=== PATIENT | female | born 1975 ===

== ENCOUNTER 2024-12-20 16:00 | Outpatient (REF) | payer OTHER, SELFPAY ==
--- OUTSIDE RECORDS SUMMARY | 2023-06-29 10:40 | XMS_ITS ---
Author Organization [facility] Address [address] [address] Care Team Providers Care Drilling Engineer Name Role Phone Giorgio Lozoya Unavailable [phone] Yasmine Hernandez Unavailable [phone] REASON FOR VISIT Pap Encounters Encounter Location Date Provider Diagnosis [facility] [address] [place] [address] [address] [place], [place] [phone] 06/29/2023 Yasmine Hernandez Plan Of Treatment No Information Progress Notes * Chip HOLDEROB: [birth year] (49 yo F)Acc No.[id number]:06/29/2023 Progress Note Patient: Marielena Hawkins Provider: Kimberly Hernandez MD :1975 A ge:48 Y S ex:Female Date:06/29/2023 Address:[address] [place], [place] [id number] Subjective: * Chief Complaints: * P ap * Medical History: * Surgical History: * Hospitalization/Major Diagno stic Procedure: * Medications: * Electronic signature of Gloria Hernandez M.D. on 12/21/2024 at 10:47 AM EST Sign off status: Pending * Provider: Kimebrly Hernandez MD Date: 06/29/2023 Generated for Lul giang/Agustin/Suze on: 02/21/2024 10:47 AM EST
--- OUTSIDE RECORDS SUMMARY | 2023-11-25 03:40 | XMS_ITS ---
Author Organization [facility] Address [address] [facility] [address] [place] [address] Care Team Providers Care Environmental Health Inspector Name Role Phone Giorgio Lozoya Unavailable [phone] Yasmine Hernandez Unavailable [phone] Allergies Allergen (clinical drug ingredient) Drug/Non Drug Allergy documented on EMR Reaction Allergy Type Onset Date Status penicillin G benzathine hives Drug Allergy Active REASON FOR VISIT Shoulder pain, Seen by Sameer Waldron, PGY1 Medications Medication SIG (Take, Route, Frequency, Duration) Notes Start Date End Date Status Trulicity Pen 0.75 mg/0.5 mL solution as directed subcutaneously once a week; Duration: 30 days Active TraMADol Hydrochloride 50 mg tablet 1 tab(s) orally every 6 hours; Duration: 7 days 11/25/2023 Active Social History Social History Additional Details Category Social Info Options Details Social History Occupation: [employer] Occup. exposure: none Travel ouside [place]: no Alcohol: no Sexually active: yes Drug use: no Exercise: no Home smoke detector use: no Caffeine: no Marital Status: Children: sons: 2 Pets: dog 1 Checked Cholesterol levels yes Seat belt usage Yes Gun in house No Vital Signs Blood pressure systolic 142 mm Hg 11/25/19 24 Blood pressure diastolic 90 mm Hg 024 Height 63.75 in 11/25/2023 Weight 225 lbs 11/25/2023 BMI 38.92 kg/m2 11/25/2023 Dana Encounters Encounter Location Date Provider Diagnosis [facility] [address] [facility] [address] [place], [place] [phone] 11/25/2023 Yasmine Hernandez Obesity (BMI 30-39.9 ) E66.9 ; Pain, joint, shoulder, right M25.511 ; Ulcer of right foot with necrosis of muscle L97.513 ; Type 2 diabetes mellitus with hyperglycemia, without long-term current use of insulin E11.65 and Iron deficiency E61.1 Assessments Encounter Date Diagnosis (ICD Code) Assessment Notes Treatment Notes Treatment Clinical Notes Section Notes 11/25/2023 Obesity (BMI 30-39.9) (ICD-10 - E66.9) 11/25/2023 Pain, joint, shoulder, right (ICD-10 - M25.511) Constant Right shoulder pain radiating to forearm since 2 weeks. Prior to that she had a fall 5 years ago since then had on and off pain but refused workup during prior visits. Range of motion restriction. Pain aggravated on both active and passive movement of shoulder. No warmth noticed on the shoulder. Pain both on abduction and extension of the shoulder. Will order an Xray and MRI. Pain control on Tramadol 50mg oral q6 for 7 days and follow up with joint specalist for further management. 11/2023- Right shoulder joint Xray shows mild rotator cuff calcific tendinitis. 11/25/2023 Ulcer of right foot with necrosis of muscle (ICD-10 - L97.513) followed in wound clinic 11/25/2023 Type 2 diabetes mellitus with hyperglycemia, without long-term current use of insulin (ICD-10 - E11.65) pending visit with endo . Patient currently non taking any medication except Trulicity Pen 0.75 mg weekly. Last HbA1c 08/05/2023- 15.2 Educated on the complications of diabetes and risk of non compliance with the medications. Follows Dr. Warner (Endocrinology) pending appointment. 11/25/2023 Iron deficiency (ICD-10 - E61.1) Currently not taking any supplements. 11/25/2023 Other Tdap 2022 PAP 2023 NEXT DM shoulder Plan Of Treatment Medication Medication Name Sig Start Date Stop Date Notes Rosuvastatin Calcium 40 mg tablet 1 tab(s) orally once a day; Duration: 30 day(s) Trulicity Pen 0.75 mg/0.5 mL solution as directed subcutaneously once a week; Duration: 30 days TraMADol Hydrochloride 50 mg tablet 1 tab(s) orally every 6 hours; Duration: 7 days 11/25/2023 fluconazole 100 mg tablet 1 tab(s) orall y once a day; Duration: 7 days ferrous gluconate 324 mg tablet 1 tab(s) orally once a day; Duration: 90 days Jardiance 10 mg tablet 1 tab(s) orally o nce a day (in the morning) Lantus Solostar Pen 100 units/mL solution 25 units subcutaneously Treatment Notes Assessment Notes Pain, joint, shoulder, right Constant Right shoulder pain radiating to forearm since 2 weeks. Prior to that she had a fall 5 years ago since then had on and off pain but refused workup during prior visits. Range of motion restriction. Pain aggravated on both active and passive movement of shoulder. No warmth noticed on the shoulder. Pain both on abduction and extension of the shoulder. Will order an Xray and MRI. Pain control on Tramadol 50mg oral q6 for 7 days and follow up with joint specalist for further management. 11/2023- Right shoulder joint Xray shows mild rotator cuff calcific tendinitis. Ulcer of right foot with nec rosis of muscle followed in wound clinic Type 2 diabetes mellitus wit h hyperglycemia, without long-term current use of insulin pending visit with endo . Patient currently non taking any medication except Trulicity Pen 0.75 mg weekly. Last HbA1c 08/05/2023- 15.2 Educated on the complications of diabetes and risk of non compliance with the medications. Follows Dr. Warner (Endocrinology) pending appointment. Iron deficiency Currently not taking any supplements. Other Tdap 2022 PAP 2023 NEXT DM shoulder Pending Test Test Name Order Date RAD: SHOULDER 2 VIEW MIN. 11/25/2023 MRI: Shoulder,RIGHT WITH OUT Contrast Next Appt Details Follow Up: prn, Reason: History and Physical Notes * HPI (History of Present Illness) Category Sub-Category Detail Notes Category Not es Follow-up RIGHT SHOULDER PAIN: Patient came to the office with chief complaint of Right Shoulder pain which has been constant and bothering the patient since the last two weeks. Patient had a mechanical fall 5 years ago and went to ER and was sent home with a sling. Since the fall which patient had pain which has been on and off. During her prior clinic visits, she refused any work up for shoulder pain as it was not bothering her and mentioned she could manage the pain. But over the last two weeks the pain has been constant radiating to forearm. Patient has been taking Ibuprofen and Tylenol over the last two weeks which gave mild relief in her. She denies any change in physical activity/lifting heavy objects. #DIABETES TYPE 2: Patient has type 2 diabetes non-compliant with the medications. Her last HbA1C 08/05/2023 was in 15.2. As per the patient she is only taking TTrulicity Pen 0.75 mg/0.5 mL solution as directed subcutaneously once a week. When asked the reason for not taking the medication she replied she doesnt have any answer Patient has been educated about the complications associated with diabetes and importance of being compliant with the medications. She responded positively and open to the idea of being compliant with diabetes. She follows Dr. Warner (Endocrine specialist). Physical Examination Category Sub-Category Detail Notes Section Note s HEENT Head: normocephalic, atraumatic Nose: unremarkable Throat: clear, no erythema o r exudate Mouth: moist mucus membrane s Ears: unremarkable, TM's n ormal bilaterally NECK General: supple JVD: none EXTREMITIES Edema: none Upper Extremities: right shoulder limit ed ROM BACK Spine: unremarkable HEART Rhythm: regular Heart sounds: normal S1S2 Rate: regular ABDOMEN General: soft Guarding: none Tenderness: none MUSCULOSKELETAL Knee: unremarkable Ankle: unremarkable Foot: unremarkable Leg: unremarkable GENERAL General Appearence: well-appearing, no ac curyung distress Mental Status: alert and oriented LUNGS Auscultation: CTA bilaterally, no wheezin g/rhonchi/rales Progress Notes * Chip HOLDEROB: [birth year] (49 yo F)Acc No.[id number]:11/25/2023 Progress Notes Patient: Marielena Hawkins Provider: Kimberly Hernandez MD :1975 A ge:48 Y S ex:Female Date:11/25/2023 Address:[address] [place], [place] [phone] Subjective: * Chief Complaints: * S houlder painSeen by Sameer Waldron, PGY1 * HPI: F ollow-up: RIGHT SHOULDER PAIN: Patient came to the office with chief complaint of Right Shoulder pain which has been constant and bothering the patient since the last two weeks. Patient had a mechanical fall 5 years ago and went to ER and was sent home with a sling. Since the fall which patient had pain which has been on and off. During her prior clinic visits, she refused any work up for shoulder pain as it was not bothering her and mentioned she could manage the pain. But over the last two weeks the pain has been constant radiating to forearm. Patient has been taking Ibuprofen and Tylenol over the last two weeks which gave mild relief in her. She denies any change in physical activity/lifting heavy objects. #DIABETES TYPE 2: Patient has type 2 diabetes non-compliant with the medications. Her last HbA1C 08/05/2023 was in 15.2. As per the patient she is only taking TTrulicity Pen 0.75 mg/0.5 mL solution as directed subcutaneously once a week. When asked the reason for not taking the medication she replied she doesnt have any answer Patient has been educated about the complications associated with diabetes and importance of being compliant with the medications. She responded positively and open to the idea of being compliant with diabetes. She follows Dr. Warner (Endocrine specialist). * ROS: A LLERGY: no A ngioedema. n o C ough. n o E ar Symptoms. n o F acial Pressure. n o I tchy Eyes. n o N melly Congestion. n o?Post-nasal Drip. n o R nato. n o S neezing. n o S ore Throat. ? C ONSTITUTIONAL: Body Aches y es. n o F ever. n o C hills.?no S weats. n o N ight Sweats. n o W eight Loss. n o W eight Gain.?no L oss of Appetite. n o W eak. n o F atigue. C ARDIOLOGY: no C hest Pain. n o S hortness of Breath. n o?Palpitations. n o D izziness. n o L eg Edema. n o F atigue. n o O rthopnea. n o P ND (paroxsymal nocturnal dyspnea). D ERMATOLOGY: no S welling. n o B ruising. n o R nato.?no M ole. n o L umps. n o D ry or Sensitive Skin. n o H jennifer. n o?Acne. n o S kin Cancer. n o E czema. E NDOCRINOLOGY: no P olyuria. n o P olydypsia. n o P olyphagia. n o W eight Loss. n o W eight Gain. n o F atigue. n o S leep Disturbance. n o C old Intolerance. n o H eat Intolerance. n o S kin Changes.?no H air Changes. n o B owel Changes. n o P alpitations. E NT: no R hinorrhea. n o S ore Throat. n o H oarseness. n o C ough. n o S inus Pain. n o T eeth Pain. n o O talgia.?no R inging in Ears. n o H earing Loss. n o E pistaxis. n o P ost-nasal Drip. n o S wollen Lymph Nodes. n o D izziness. F EMALE REPRODUCTIVE: no A bnormal Vaginal Discharge. n o I rregular Menses. n o H ot Flashes. n o P elvic Pain. n o D ysmenorrhea. n o D yspareunia. n o S exually Activity. n o S TDs. n o I nfertility. n o F requent Yeast Infections. n o C ontraception. n o B reast Pain. n o N ipple Discharge. G ASTROENTEROLOGY: no A bdominal Pain. n o N ausea. n o V omiting. n o H eartburn. n o I ndigestion:. n o B loating. n o D ysphagia. n o D iarrhea. n o C onstipation. n o C hange in Bowel Habits. n o?Blood in Stool. n o H emorrhoids. n o A ppetite Change. H EMATOLOGY/LYMPH: no S wollen Glands. n o F atigue. n o L oss of Appetite. n o V aricose Veins. n o E asy Bruising. M USCULOSKELETAL: Positive for r ight shoulder pain. n o J oint Pain. n o J oint Stiffness, R ight shoulder stiffness. n o J oint Swelling. n o B ack Pain. n o M yalgias. n o L eg Cramps. n o S ciatica. n o F racture. n o C arpal Tunnel Syndrome. n o O steoporosis Treatment. N EUROLOGY: no H eadache. n o W eakness. n o T ingling/Numbness. n o S peech Abnormality. n o V isual Changes. n o D izziness. n o M miguel Loss. n o S eizures. n o G ait Abnormality. n o S leep Problems. O PTHALMOLOGY: no B lurred Vision. n o C hange in Vision. n o?Eye Redness. n o E ye Irritation. n o E ye Drainage. n o E ye pain.?no P eriorbital Swelling. P SYCHOLOGY: no D epression. n o A nxiety. n o M giuliano.?no S tressors. n o S leep Disturbances. n o S uicidal Ideation. n o P aranoia. n o M ental or Physical Abuse. n o E ating Disorder. R ESPIRATORY: no S hortness of Breath. n o D OE (dyspnea on exertion). n o P ersistent Cough. n o C hest Congestion. n o C hest Pain. n o?Wheezing. n o H emoptysis. n o O rthopnea. n o P ND (paroxsymal nocturnal dyspnea). T obacco Use n one. U ROLOGY: no D ysuria. n o U rinary Frequency. n o U rinary Urgency. n o B lood in Urine. n o U rinary Incontinence. n o N octuria. n o O bstructive Symptoms. n o P revious UTIs. n o K idney Stones. ? * Medical History: type 2 DM Shoulder injury * Surgical History: right foot ulcer debridement 11/2022 2 x C section * Hospitalization/Major Diagno stic Procedure: as above 11/2022 * Family History: F ather: alive. M other: alive. 1 brother(s) , 1 sister(s) . . significant for diabetes both brother sister . * Social History: S moking Status / Tobacco: no . C hecked Cholesterol levels: yes. Seat belt usage: Yes. Gun in house: No. Alcohol: no. Drug use: no. Marital Status: . Children: sons: 2. 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 Exercise: no. Caffeine: no. Sexually active: yes. Travel ouside [place]: no. Occup. exposure: none. Home smoke detector use: no. Pets: dog 1. Social History Verified. * Medications: T akingTrulicity Pen 0.75 mg/0.5 mL solution as directed subcutaneously once a week Taking Trulicity Pen 0.75 mg/0.5 mL solution as directed subcutaneously once a week Discontinuedferrous gluconate 324 mg tablet 1 tab(s) orally once a day Jardiance 10 mg tablet 1 tab(s) orally once a day (in the morning) Lantus Solostar Pen 100 units/mL solution 25 units subcutaneously Rosuvastatin Calcium 40 mg tablet 1 tab(s) orally once a day fluconazole 100 mg tablet 1 tab(s) orally once a day Medication List reviewed and reconciled with the patientDiscontinued ferrous gluconate 324 mg tablet 1 tab(s) orally once a day Discontinued Jardiance 10 mg tablet 1 tab(s) orally once a day (in the morning) Discontinued Lantus Solostar Pen 100 units/mL solution 25 units subcutaneously Discontinued Rosuvastatin Calcium 40 mg tablet 1 tab(s) orally once a day Discontinued fluconazole 100 mg tablet 1 tab(s) orally once a day Medication List reviewed and reconciled with the patient * Allergies: p enicillin G benzathine: hives Objective: * Vitals: R R:16/min, HR:96/min, BP:142/90mm Hg, Ht: 63.75 in, Wt:225lbs, BMI:38.92Index. Dana. * Physical Examination: G ENERAL: General Appearence: w ell-appearing, no acute distress.?Mental Status: a lert and oriented. H EENT: Head: n ormocephalic, atraumatic. E ars: u nremarkable, TM's normal bilaterally. N ose: u nremarkable. M outh: m oist mucus membranes.?Throat: c lear, no erythema or exudate. N ANAHI: General: s upple. J VD: n one. H EART: Rate: r egular. R hythm: r egular. H eart sounds: n ormal S1S2. L UNGS: Auscultation: C TA bilaterally, no wheezing/rhonchi/rales.? A BDOMEN: General: s oft. T enderness: n one. G uarding:?none. B ACK: Spine: u nremarkable. E XTREMITIES: Upper Extremities: r ight shoulder limited ROM. E omer: n one. M USCULOSKELETAL: Leg: u nremarkable. K nee: u nremarkable. A nkle: u nremarkable. F oot: u nremarkable. Assessment: * Assessment: 1. P ain, joint, shoulder, right - M25.511 (Primary) 2 . O besity (BMI 30-39.9) - E66.9 3 . U lcer of right foot with necrosis of muscle - L97.513 ? 4 . T ype 2 diabetes mellitus with hyperglycemia, without long-term current use of insulin - E11.65 5 . I she deficiency - E61.1 Plan: * Treatment: ?Imaging: MRI: Shoulder,RIGHT WITH OUT Contrast* Caro Matthews 11/25/2023 10:0 8:31 AM EDT > CPT 43039 PENDING WITH EVICORE [id number],Kelsie 12/01/2023 09:12:48 AM EDT > DENIED Notes: Constant Right shoulder pain radiating to forearm since 2 weeks. Prior to that she had a fall 5 years ago since then had on and off pain but refused workup during prior visits. Range of motion restriction. Pain aggravated on both active and passive movement of shoulder. No warmth noticed on the shoulder. Pain both on abduction and extension of the shoulder. Will order an Xray and MRI. Pain control on Tramadol 50mg oral q6 for 7 days and follow up with joint specalist for further management. 11/2023- Right shoulder joint Xray shows mild rotator cuff calcific tendinitis.??2.?Ulcer of right foot with necrosis of muscle? Notes: ?followed in wound clinic??3.?Type 2 diabetes mellitus with hyperglycemia, without long-term current use of insulin? Continue Trulicity Pen solution, 0.75 mg/0.5 mL, as directed, subcutaneously, once a week, 30 days,5, Refills 11;?Stop Rosuvastatin Calcium tablet, 40 mg, 1 tab(s), orally, once a day, 30 day(s), 30;?Stop Lantus Solostar Pen solution, 100 units/mL, 25 units, subcutaneously;?Stop Jardiance tablet, 10 mg, 1 tab(s), orally, once a day (in the morning).?? Notes: ?pending visit with endo . Patient currently non taking any medication except Trulicity Pen 0.75 mg weekly. Last HbA1c 08/05/2023- 15.2 Educated on the complications of diabetes and risk of non compliance with the medications. Follows Dr. Warner (Endocrinology) pending appointment.??4.?Iron deficiency? Stop ferrous gluconate tablet, 324 mg, 1 tab(s), orally, once a day, 90 days, 90 Tablet.?? Notes: ?Currently not taking any supplements.??5.?Others? Stop fluconazole tablet, 100 mg, 1 tab(s), orally, once a day, 7 days, 7 Tablet.?? Notes: Tdap 2022 PAP 2023 NEXT DM shoulder?? * Procedure Codes: * Preventive Medicine: Counseling: Patrick thomas on-smoker 0 03/17/2023. C are goal follow up plan: B IA management provided Y es. Immunizations: T etnus 2 023. Screening / Special Tests: M ammogram 2 024. * Follow Up: p rn Billing Information: * Visit Code: 16345 OFFICE/OUTPATIENT VISIT, EST. * Procedure Codes: * Electronic signature of Gloria Hernandez M.D. on 12/21/2024 at 10:47 AM EST Sign off status: Pending * Provider: Kimberly Hernandez MD Date: Generated for Lul giang/Agustin/Gaurangransmitting on: 02/21/2024 10:47 AM EST
--- OUTSIDE RECORDS SUMMARY | 2024-03-22 09:00 | XMS_ITS ---
Author Organization [facility] Address [address] [place] [address] Care Team Providers Care Enrollment Consultant Name Role Phone Giorgio Lozoya Unavailable [phone] Yasmine Hernandez Unavailable [phone] REASON FOR VISIT CPE Medications Medication SIG (Take, Route, Frequency, Duration) Notes Start Date End Date Status Trulicity Pen 0.75 mg/0.5 mL solution as directed subcutaneously once a week; Duration: 30 days Active ferrous gluconate 324 mg tablet 1 tab(s) orally once a day; Duration: 90 days Active rosuvastatin 40 mg tablet 1 tab(s) orall y once a day; Duration: 90 days Active TraMADol Hydrochloride 50 mg tablet 1 tab(s) orally every 6 hours; Duration: 7 days 11/25/2023 Active Encounters Encounter Location Date Provider Diagnosis [facility] [address] [place] [phone] 03/22/2024 Yasmine Hernandez Plan Of Treatment No Information Progress Notes * Cristhian HOLDERAndreiOB: [birth year] (49 yo F)Acc No.[id number]:03/22/2024 Complete Physical Patient: Marielena Hawkins Provider: Kimberly Hernandez MD :1975 A ge:48 Y S ex:Female Date:03/22/2024 Address:[address] [place], [place] [phone] Subjective: * Chief Complaints: * C PE * Medical History: * Surgical History: * Hospitalization/Major Diagno stic Procedure: * Medications: T akingferrous gluconate 324 mg tablet 1 tab(s) orally once a day rosuvastatin 40 mg tablet 1 tab(s) orally once a day TraMADol Hydrochloride 50 mg tablet 1 tab(s) orally every 6 hours Trulicity Pen 0.75 mg/0.5 mL solution as directed subcutaneously once a week Medication List reviewed and reconciled with the patientTaking ferrous gluconate 324 mg tablet 1 tab(s) orally once a day Taking rosuvastatin 40 mg tablet 1 tab(s) orally once a day Taking TraMADol Hydrochloride 50 mg tablet 1 tab(s) orally every 6 hours Taking Trulicity Pen 0.75 mg/0.5 mL solution as directed subcutaneously once a week Medication List reviewed and reconciled with the patient Billing Information: * Procedure Codes: * Electronic signature of Gloria Hernandez M.D. on 12/21/2024 at 10:47 AM EST Sign off status: Pending * Provider: Kimberly Hernandez MD Date: 0 03/22/2024 Generated for Lul giang/Agustin/Suze on: 1 02/21/2024 10:47 AM EST
[2024-12-21 09:44] LABS: MANUAL DIFF FLAG NO
[2024-12-21 09:53] LABS: Imm Gran Abs Auto 0.02 X10*3/uL (0.00-0.03); Imm Gran Pct Auto 0.2 % (0.0-0.4); NRBC Abs Auto 0.000 X10*3/uL (0.0-0.012); NRBC Pct Auto 0.0 /100WBC (0.0-0.2)
--- OUTSIDE RECORDS SUMMARY | 2024-12-21 10:46 | XMS_ITS | Clinical Summary ---
Author Organization [facility] Address [address] [address] Phone Care Team Providers Care Clinical Lab Assistant Name Role Phone Pcp, Not Required Primary Care Provider Unavaila ble Allergies Active Allergy Reactions Criticality Noted Date Comments Penicillins Hives 06/07/2024 Tolerated Cefepime 06/09/2023 Medications empagliflozin (JARDIANCE) 25 mg tablet Take 1 tablet by mouth every morning. 05/25/19 25 Active dulaglutide (TRULICITY) 1.5 mg/0.5 mL subcutaneous injection Inject 1.5 mg under the skin every 7 days. 06/08/19 25 Active FREESTYLE LITE Strp strips 1 each. 05/23/19 25 Active lisinopril (PRINIVIL,ZESTRI L) 2.5 MG tablet Take 1 tablet by mouth every morning. 03/30/19 25 Active rosuvastatin (CRESTOR) 40 MG tablet Take 1 tablet by mouth daily. Active insulin glargine 100 unit/mL (3 mL) InPn injection pen Inject 12 Units under the skin daily. 3 mL 06/15/19 25 Active insulin pen needles, disposable, 32 gauge x 5/32 Ndle 1 each by Miscellaneous route every morning. 100 each 06/15/19 25 Active cyclopentolate (CYCLOGYL) 1 % ophthalmic solution INSTILL 1 DROP INTO BOTH EYES TWICE A DAY 4 mL 6 07/26/19 25 Active prednisoLONE acetate (PRED FORTE) 1 % ophthalmic suspension Place 1 drop into the right eye 2 (two) times a day. 10 mL 2 07/27/19 25 Active prednisoLONE acetate (PRED FORTE) 1 % ophthalmic suspension Place 1 drop into the left eye 4 (four) times a day. 10 mL 2 07/27/19 25 Active Active Problems Problem Noted Date Diagnosed Date Uveitis 06/14/2024 Vision loss, right eye 06/08/2024 Assessment & Plan (06/13/2024 11:03 AM EDT): #R eye vision changes / pain / redness #C/f endophthalmitis vs panuveitis Presents with 1 week of R eye vision changes ( cloudiness ), followed by conjunctival injection. Pain, and watery drainage. [facility] following, initial concern for endophthalmitis vs panuevitis. Continues with serial exams with ophthalmology. Given her negative infectious workup and exam findings, ID and ophthalmology are in agreement that her presentation is unlikely to be d/t an infectious cause. 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 Pt has received avastatin x 2 for neovascularization (likely d/t proliferative diabetic retinopathy). - 06/08 BCx- NGTD - 06/09 BCx - NGTD (in the setting of fever) - 06/08 eye culture- NGTD - 06/08 fungal eye culture- NDTD - 1,3-BDG negative - galactommanan 0.04 - HIV negative - F/u ANCA, HLAB27 - TTE without vegetations - f/u C3, C4, CMP, CBC with diff - appreciate ophtho involvement --- for 06/14 arrange transport to [facility] 12th floor, pod 6, by 8:00 AM for repeat exam (requested 06/13) --- continue prednisolone q2hr OD, cyclogyl BID OD, moxifloxacin QID OD --- sp intravitreous avastatin x 2 - appreciate ID recs --- S/p intravitreous vanc/ceftaz/vori (06/08) --- stop Vancomycin (06/08-06/13) --- stop Cefepime (06/08-06/13) ---s/p IV amphotericin (06/08-06/10) --- stop voriconazole 300mg BID Assessment & Plan (06/12/2024 11:25 AM EDT): #R eye vision changes / pain / redness #C/f endophthalmitis vs panuveitis Presents with 1 week of R eye vision changes ( cloudiness ), followed by conjunctival injection. Pain, and watery drainage. [facility] following, initial concern for endophthalmitis vs panuevitis. She is at high risk for infection given high A1c, recent prednisone for bronchitis. On repeat [facility] exam concern for infection now low, both ophtho and ID in agreement to continue abx through the weekend. Given negative TTE (per ID no need for CYNTHIA) and no pathogens identified, likely will plan to dc antibiotics on 06/13. Ophtho continues to follow, last exam 06/10. Has received avastatin x 2 for neovascularization (likely d/t proliferative diabetic retinopathy). - 06/08 BCx- NGTD - 06/09 BCx - NGTD (in the setting of fever) - 06/08 eye culture- NGTD - 06/08 fungal eye culture- NDTD - 1,3-BDG negative - galactommanan 0.04 - HIV negative - F/u ANCA, HLAB27 - TTE without vegetations - f/u C3, C4, CMP, CBC with diff - appreciate ophtho involvement --- arrange transport to [facility] 12th floor, pod 6, by 8:00 AM for repeat exam (requested 06/12) --- continue prednisolone q2hr OD, cyclogyl BID OD, moxifloxacin QID OD --- sp intravitreous avastatin x 2 - appreciate ID recs --- S/p intravitreous vanc/ceftaz/vori (06/08) --- continue empiric Vancomycin per pharmacy protocol (06/08- ) --- continue Cefepime NURSE MANAGER dosing 2g q8 (06/08- ) ---s/p IV amphotericin (06/08-06/10 ) --- continue voriconazole 300mg BID Assessment & Plan (06/11/2024 11:44 AM EDT): #R eye vision changes / pain / redness #C/f endophthalmitis vs panuveitis Presents with 1 week of R eye vision changes ( cloudiness ), followed by conjunctival injection. Pain, and watery drainage. [facility] following, initial concern for endophthalmitis vs panuevitis. She is at high risk for infection given high A1c, recent prednisone for bronchitis. On repeat [facility] exam concern for infection now low, both ophtho and ID in agreement to continue abx through the weekend. Given negative TTE (per ID no need for CYNTHIA) and no pathogens identified, likely will plan to dc antibiotics on 06/13. Ophtho continues to follow, last exam 06/10. Has received avastatin x 2 for neovascularization (likely d/t proliferative diabetic retinopathy). - 06/08 BCx- NGTD - 06/09 BCx - NGTD (in the setting of fever) - 06/08 eye culture- NGTD - 06/08 fungal eye culture- NDTD - 1,3-BDG, galactommanan - F/u ANCA, HLAB27 - TTE without vegetations - appreciate ophtho involvement --- arrange transport to [facility] 12th floor, pod 6, by 8:00 AM for repeat exam --- continue prednisolone q2hr OD, cyclogyl BID OD, moxifloxacin QID OD --- sp intravitreous avastatin x 2 - appreciate ID recs --- S/p intravitreous vanc/ceftaz/vori (06/08) --- continue empiric Vancomycin per pharmacy protocol (06/08- ) --- continue Cefepime NURSE MANAGER dosing 2g q8 (06/08- ) ---s/p IV amphotericin (06/08-06/10 ) --- continue voriconazole 300mg BID Assessment & Plan (06/10/2024 1:17 PM EDT): #R eye vision changes / pain / redness #C/f endophthalmitis vs panuveitis Presents with 1 week of R eye vision changes ( cloudiness ), followed by conjunctival injection. Pain, and watery drainage. Seen initially at [facility] ED where exam concerning for severe AC reaction but no hypopyon. B scan right eye c/f vitritis. Findings could be in the setting of endogenous endophthalmitis vs panuveitis. Also noted to have e/o proliferative diabetic retinopathy. Mildly elevated ESR 48, CRP 17.5, but no leukocytosis. CT face, head, chest and A/P without signs of acute infection. Of note, she was recently treated for a bronchitis episode with pred x5 days a month ago. ID consulted and she was empirically started on cefepime/vanco and given risk risk for fungal infection, she was also empirically started on Ambisome. Ophtho continues to follow, last exam 06/10 - 06/08 BCx- NGTD - 06/09 BCx - NGTD (in the setting of fever) - 06/08 eye culture- NGTD - 06/08 fungal eye culture- NDTD - 1,3-BDG, galactommanan - F/u ANCA, HLAB27 - TTE Appreciate ID recommendations: - S/p intravitreous vanc/ceftaz/vori (06/08) - continue empiric Vancomycin per pharmacy protocol (06/08- ) - continue Cefepime NURSE MANAGER dosing 2g q8 (06/08- ) - s/p IV amphotericin (06/08-06/10 ) - continue voriconazole (s/p 400mg BID x 1 day) 300mg BID - follow up TTE, if negative, will likely need CYNTHIA. Appreciate [facility] recommendations: - [facility] exam 8 AM o Thursday, 06/13 [ ] arrange transportation - continue Moxifloxacin QID right eye - continue Cyclogyl BID right eye - continue Prednisolone q2h right eye. Assessment & Plan (06/09/2024 2:21 PM EDT): #R eye vision changes / pain / redness #C/f endophthalmitis vs panuveitis Presents with 1 week of R eye vision changes ( cloudiness ), followed by conjunctival injection. Pain, and watery drainage. Seen initially at [facility] ED where exam concerning for severe AC reaction but no hypopyon. B scan right eye c/f vitritis. Findings could be in the setting of endogenous endophthalmitis vs panuveitis. Also noted to have e/o proliferative diabetic retinopathy. Mildly elevated ESR 48, CRP 17.5, but no leukocytosis. CT face, head, chest and A/P without signs of acute infection. Of note, she was recently treated for a bronchitis episode with pred x5 days a month ago. ID consulted and she was empirically started on cefepime/vanco and given risk risk for fungal infection, she was also empirically started on Ambisome. [facility] exam today and again tomorrow at 7:30am (transport already set up). She will be NPO after midnight for possible vitriectomy. Dx: - 06/08 BC- NGTD - 06/09 BC (in the setting of fever)- pending. - 06/08 eye culture- NGTD - 06/08 fungal eye culture- NDTD - 1,3-BDG, galactommanan - F/u ANCA, HLAB27 - TTE Tx: Appreciate ID recommendations: - S/p intravitreous vanc/ceftaz/vori (06/08) - continue empiric Vancomycin per pharmacy protocol (06/08- ) - continue Cefepime NURSE MANAGER dosing 2g q8 (06/08- ) - continue empiric IV amphotericin (06/08- ) - may transition to Vori tomorrow. - follow up TTE, if negative, will likely need CYNTHIA. Appreciate [facility] recommendations: - npo after midnight for possible vitriectomy. - [facility] exam 7:30 am tomorrow. (Transportation arranged) - continue Moxifloxacin QID right eye - continue Cyclogyl BID right eye - continue Prednisolone q2h right eye. Assessment & Plan (06/08/2024 1:50 PM EDT): #R eye vision changes / pain / redness #C/f endophthalmitis vs panuveitis Presents with 1 week of R eye vision changes ( cloudiness ), followed by conjunctival injection. Pain, and watery drainage. Seen initially at [facility] ED where exam concerning for severe AC reaction but no hypopyon. B scan right eye c/f vitritis. Findings could be in the setting of endogenous endophthalmitis vs panuveitis. Also noted to have e/o proliferative diabetic retinopathy. While endogenous endopathalmitis is on the differential, given her poorly controlled fungal infection and sinusitis symptoms, a locally invasive fungal infection is also possible. She was also recently treated for a bronchitis episode with pred x5 days a month ago. CT face at OSH 06/07 showed a maxillary retention cyst, but no e/o deep tissue/orbital infection. Mildly elevated ESR 48, CRP 17.5, but no leukocytosis and remains afebrile. Denies any IVDU, or known autoimmune diseases. ID and ophtho following. Dx: - Obtain STAT blood cultures - 1,3-BDG, galactommanan - F/u eye tap culture/gram stain, fungal wet prep/cx (06/08) - F/u ANCA, HLAB27 - F/u CT head, face, CAP - Negative studies: treponemal Ab, Utox - OSH records uploaded in media tab - ENT c/s for sinus exam - TTE - HIV screen Tx: - S/p intravitreous vanc/ceftaz/vori (06/08) - Start empiric Vancomycin (06/08- ) and Cefepime NURSE MANAGER dosing 2g q8 (06/08- ) -----Requires test dose of cefepime given hx childhood mild PNC allergy - Start empiric IV amphotericin (06/08- ) Insulin use (long-term) in type 2 diabetes 06/08 Assessment & Plan (06/13/2024 11:03 AM EDT): Per med dispense history, regimen should be Lantus 25U QD, jardiance 25 mg qd, and Trulicity 1.5 weekly though she hasn't taken these in months. Repeat Hbg1c 14.9%, ongoing titration of insulin. - continue moderate dose sliding scale - additional lantus 2u x 1 06/13 - 06/14 increase lantus to 12 units QD - Ongoing education on importance of DM control - plan to resume jardiance on discharge [ ] f/u with outpatient mat making machine tender Assessment & Plan (06/12/2024 11:25 AM EDT): Per med dispense history, regimen should be Lantus 25U QD, jardiance 25 mg qd, and Trulicity 1.5 weekly though she hasn't taken these in months. Repeat Hbg1c 14.9%, ongoing titration of insulin. - continue moderate dose sliding scale - continue lantus 10 units QD - Ongoing education on importance of DM control [ ] f/u with outpatient mat making machine tender Assessment & Plan (06/11/2024 9:03 AM EDT): Per med dispense history, regimen should be Lantus 25U QD, jardiance 25 mg qd, and Trulicity 1.5 weekly though she hasn't taken these in months. Repeat Hbg1c 14.9%, ongoing titration of insulin. - Start with moderate ISS to assess needs - increase lantus to 10 units QD - Ongoing education on importance of DM control [ ] f/u with outpatient mat making machine tender Assessment & Plan (06/10/2024 1:17 PM EDT): Per med dispense history, regimen should be Lantus 25U QD, jardiance 25 mg qd, and Trulicity 1.5 weekly though she hasn't taken these in months. Repeat Hbg1c 14.9%, ongoing titration of insulin. - Start with moderate ISS to assess needs - increase lantus to 10 units QD - Ongoing education on importance of DM control [ ] f/u with outpatient mat making machine tender Assessment & Plan (06/09/2024 2:21 PM EDT): Per med dispense history, regimen should be Lantus 25U QD, jardiance 25 mg qd, and Trulicity 1.5 weekly though she hasn't taken these in months. Repeat Hbg1c 14.9% - Start with moderate ISS to assess needs - start lantus 5 units QD - Ongoing education on importance of DM control Assessment & Plan (06/08/2024 1:48 PM EDT): Per med dispense history, regimen should be Lantus 25U QD, jardiance 25 mg qd, and Trulicity 1.5 weekly though she hasn't taken these in months. Repeat Ha1c 14.9% - Start with moderate ISS to assess needs - Would benefit from resuming basal insulin prior to discharge - Ongoing education on importance of DM control Known medical problems 06/08/2024 Assessment & Plan (06/13/2024 11:03 AM EDT): #HTN - continue Lisinopril 2.5 mg qd #HLD - continue Rosuvastatin 40 mg qd #CUAUHTEMOC - Stopped taking iron supplementation 04/2024 due to constipation - Iron studies after acute infection - outpatient age appropriate screening Assessment & Plan (06/12/2024 11:25 AM EDT): #HTN - continue Lisinopril 2.5 mg qd #HLD - continue Rosuvastatin 40 mg qd #CUAUHTEMOC - Stopped taking iron supplementation 04/2024 due to constipation - Iron studies after acute infection - outpatient age appropriate screening Assessment & Plan (06/11/2024 9:03 AM EDT): #HTN - continue Lisinopril 2.5 mg qd #HLD - continue Rosuvastatin 40 mg qd #CUAUHTEMOC - Stopped taking iron supplementation 04/2024 due to constipation - Iron studies after acute infection Assessment & Plan (06/10/2024 1:17 PM EDT): #HTN - continue Lisinopril 2.5 mg qd #HLD - continue Rosuvastatin 40 mg qd #CUAUHTEMOC - Stopped taking iron supplementation 04/2024 due to constipation - Iron studies after acute infection Assessment & Plan (06/09/2024 2:21 PM EDT): #HTN - Resume Lisinopril 2.5 mg qd #HLD - Resume Rosuvastatin 40 mg qd #CUAUHTEMOC - Stopped taking iron supplementation 04/2024 due to constipation - Iron studies after acute infection Assessment & Plan (06/08/2024 1:48 PM EDT): #HTN - Resume Lisinopril 2.5 mg qd #HLD - Resume Rosuvastatin 40 mg qd #CUAUHTEMOC - Stopped taking iron supplementation 04/2024 due to constipation - Iron studies after acute infection Social History Tobacco Use Types Packs/Day Years Used Date Smoking Tobacco: Never Smokeless Tobacco: Never Tobacco Cessation:Counseling Given: Not Answered Alcohol Use Standard Drinks/Week Comments Not Currently 0 (1 standard drink = 0.6 oz pur e alcohol) Education Answer Date Recorded Are you interested in more education? Not on desirae e 06/07/2024 Are you concerned about learning? Not on file 06/07/2024 No 06/07/2024 No 06/07/2024 Food Answer Date Recorded Within the past 6 months we worried whether our food would run out before we got money to buy more. Never True 06/08/2024 Within the past 6 months the food we bought just didn't last and we didn't have enough money to get more. Never True Residential Stability Answer Date Recor ded What is your housing situation today? I have bertha santos 06/08/2024 How many times have you moved in the past 12 thu ths? One time 06/08/2024 Paying for Meds Answer Date Recorded Do you have trouble paying for medicines? No 06/08/2024 Paying Utility Bills Answer Date Record ed Do you have trouble paying your heating or elect ricity bill? No 06/08/2024 Transportation Answer Date Recorded Has the lack of transportati on kept you from medical appointments or from getting medications? No 06/08/2024 Digital Access Answer Date Recorded No 06/08/2024 Yes 06/08/2024 Do you have reliable internet access at home? Ye s 06/08/2024 Do you have a device (e.g., phone, tablet, computer) with a working camera? Yes 06/08/2024 Intimate Partner Violence Answer Date R ecorded Are you denied basic needs s uch as food, clothing, or medical care? No 06/08/2024 In the past 12 months have y ou been in a relationship with a person who hurts, threatens, or tries to control you? No 06/08/2024 Are you denied basic needs s uch as food, clothing, or medical care? No 06/08/2024 In the past 12 months have y ou been in a relationship with a person who hurts, threatens, or tries to control you? No 06/08/2024 Comments No Sex and Gender Information Value Date Recorded Sex Assigned at Female 06/07/2024 4:59 PM EDT Legal Sex Female 5:37 PM EST Gender Identity Female 06/07/2024 4:59 PM EDT Sexual Orientation Straight 06/07/2024 4: 59 PM EDT Last Filed Vital Signs Vital Sign Reading Time Taken Comments Blood Pressure 153/83 06/14/2024 5:57 AM EDT Pulse 85 06/14/2024 5:57 AM EDT Temperature 36.6 C (97.8 F) 06/14/2024 5:57 AM EDT Respiratory Rate 18 06/14/2024 5:57 AM EDT Oxygen Saturation 93% 06/14/2024 5:57 AM EDT Inhaled Oxygen Concentration - - Weight 99.8 kg (220 lb) 06/08/2024 5:30 PM EDT Height 162.6 cm (5' 4 ) 06/08/2024 5:30 PM EDT Body Mass Index 37.76 06/08/2024 5:30 PM EDT Plan of Treatment Health Maintenance Due Date Last Done Comments Adult Td,Tdap Booster 1977 DEPRESSION SCREENING 1989 HEPATITIS C SCREENING 1995 PNEUMOCOCCAL VACCINES (0-49 years) (1 of 2 - PCV) 1996 PAP SMEAR 1998 MAMMOGRAM 2017 COLOGUARD 2022 COLONOSCOPY 2022 COLORECTAL CANCER SCREENING 2022 FIT TEST 2022 FOBT 2022 SIGMOIDOSCOPY 2022 VIRTUAL COLONOSCOPY 2022 HEMOGLOBIN A1C 09/07/2024 06/08/2024, 02/28/2014 INFLUENZA VACCINE (#1) 2024 COVID-19 VACCINE ( season) 2024 BLOOD PRESSURE 12/09/2024 06/09/2024 CREATININE LEVEL 06/14/2025 06/14/2024, , 06/12/2024, Additional history exists POTASSIUM LEVEL 06/14/2025 06/14/2024, 05/18, 06/12/2024, Additional history exists DIABETIC EYE EXAM 06/24/2025 06/24/2024, , 06/24/2024, Additional history exists HIV ONE-TIME SCREENING (18-65 YEARS) Completed 06/12/2024 SMOKING STATUS SCREENING (Once After 26 Yrs) Completed 06/16/2024 HEPATITIS A VACCINES Aged Out No long er eligible based on patient's age to complete this topic HIB VACCINES Aged Out No longer eligi ble based on patient's age to complete this topic MENINGOCOCCAL VACCINES (ACWY) Aged Out No longer eligible based on patient's age to complete this topic MENINGOCOCCAL VACCINES (B) Aged Out N o longer eligible based on patient's age to complete this topic Medical Devices Not on file Procedures Procedure Name Priority Date/Time Associated Diagnosis Comments BASIC METABOLIC PANEL (BMP) Routine 06/14/2024 6:06 AM EDT HEMOGLOBIN A1C STAT 06/08/2024 12:09 AM EDT from Last 3 Months or Most Recently Relevant to Health Maintenance Results * (ABNORMAL) Basic metabolic panel (06/14/2024 6:06 AM EDT) SODIUM 141 135 - 145 mmol/L [facility] POTASSIUM 3.9 3.4 - 5.0 mmol/L [facility] CHLORIDE 108 98 - 108 mmol/L [facility] CO2 23 23 - 32 mmol/L [facility] BUN 21 8 - 25 mg/dL [facility] CREATININE 0.72 0.50 - 1.00 mg/dL [facility] GLUCOSE 159(H) 70 - 110 mg/dL [facility] CALCIUM 7.8(L) 8.5 - 10.5 mg/dL [facility] EGFR 104 >59 mL/min/1. 73m2 [facility] Comment:Estimated glomerular filtration rate calculated using the CKD-EPI refit equation. ANION GAP 10 3 - 17 mmol/L [facility] Blood 06/14/2024 6:06 AM EDT 06/14/2024 6:52 AM EDT Lisa Andrew PA-C LAB BLOOD BKR ORDERAB LES Final Result [address] [address] * (ABNORMAL) Hemoglobin A1c (06/08/2024 12:09 AM EDT) HEMOGLOBIN A1C 14.9(H) 4.3 - 5.6 % [facility] Comment:HbA1c levels 5.7-6.4 % represent pre-diabetes, indicating impaired glucose control and an increased risk of developing diabetes compared with lower HbA1c levels. The diagnostic HbA1c level for diabetes is 6.5% or greater. CALC MEAN BLD GLUC NOT DONE mg/dL [facility] Comment: A1C >12.0 There is no established normal range for the Calculated Mean Blood Glucose (CMBG), however a HbA1c of 5.6% (upper limit of normal) represents a CMBG of 114 mg/dL. The diagnostic hemoglobin A1c level for diabetes is greater than or equal to 6.5% which represents a CMBG greater than or equal to 140 mg/dL. Blood 06/08/2024 12:0 9 AM EDT 06/08/2024 1:43 AM EDT us Lakeshia Hinson MD, PhD LAB BLOOD B KR [place] [address] from Last 3 Months or Most Recently Relevant to Health Maintenance Insurance [employer] [address] [place] [address] [place] [address] [employer] [facility] Advance Directives For more information, please contact: [phone] (9AM - 5PM [place], Thursday-Thursday) * Full Code (Latest Code Status on File) Date Activated Date Inactivated Comments 06/09/2024 4:03 PM Question Answer Comments Code Status Confirmed With: Patient Care Teams Clinical Lab Assistant Relationship Specialty Start Date End Date Pcp, Not Required [address] [place] [id number] PCP - General 06/07/24 Additional Source Comments The information contained in this document represents components of the legal health record. It is not the complete legal health record.[facility]
--- OUTSIDE RECORDS SUMMARY | 2024-12-21 10:47 | XMS_ITS | Encounter Summary ---
Author Organization [facility] Address [address] [place] [address] Phone Care Team Providers Care Lighting Designer Name Role Phone Pcp, Not Required Primary Care Provider Unavaila ble Encounter Details Date Type Department Care Team (Late st Contact Info) Description 06/08/2024 Procedure Pass [facility], Main [address] 1 [place] [address] Social History Tobacco Use Types Packs/Day Years Used Date Smoking Tobacco: Never Smokeless Tobacco: Never Alcohol Use Standard Drinks/Week Comments Not Currently [...] your housing situation today? I have bertha sing 06/08/2024 How many times have you moved in the past 12 mon ths? One time 06/08/2024 Paying for Meds [...] tries to control you? No 06/08/2024 Comments Unknown Sex and Gender Information Value Date Recorded Sex Assigned at Female 06/07/2024 4:59 PM EDT Legal Sex Female 5:37 PM EST Gender Identity Female 06/07/2024 4:59 PM EDT Sexual Orientation Straight 06/07/2024 4: 59 PM EDT documented as of this encounter Functional Status * Calculated C-SSRS Risk Score (Lifetime/Recent) Answer Date of Assessment Author No Risk Indicated 06/08/2024 3:37 AM EDT Elisabet Griffith RN * [place] Suicide Severity Rating Scale (Screener/Recent Self-Report) Question Answer Date of Assessment Author 1. Wish to be (Past 1 Month) No 025 3:37 AM EDT Elisabet Griffith RN 2. Non-Specific Active Suici nathan Thoughts (Past 1 Month) No 06/08/2024 3:37 AM EDT Venkat Griffith, LIZET 6. Suicidal Behavior (Lifetime) No 3:37 AM JULIANNAT Elisabet Griffith, LIZET documented as of this encounter Plan of Treatment Not on file documented as of this encounter Visit Diagnoses Not on filedocumented in this encounter Care Teams Lighting Designer Relationship Specialty Start Date End Date Pcp, Not Required [address] [place] [address] PCP - General 06/07/24 documented as of this encounter Additional Source Comments The information contained in this document represents components of the legal health record. It is not the complete legal health record.[facility]
--- OUTSIDE RECORDS SUMMARY | 2024-12-21 10:47 | XMS_ITS | Encounter Summary ---
Author Organization [facility] Address [address] [place] [address] Phone Care Team Providers Care Property Claims Manager Name Role Phone Pcp, Not Required Primary Care Provider Unavaila ble Encounter Details Date Type Department Care Team (Late st Contact Info) Description 06/08/2024 Procedure Pass [facility] Emergency Imaging, Main [address], [address] [place] [address] Social History Tobacco Use Types Packs/Day Years [...] 3:37 AM EDT Elisabet Griffith RN * [place] Suicide Severity Rating Scale (Screener/Recent Self-Report) Question [...] on filedocumented in this encounter Care Teams Property Claims Manager Relationship Specialty Start Date End Date Pcp, Not Required [address] [place] [address] PCP - General 06/07/24 documented as of this encounter Additional Source Comments The information contained in this document represents components of the legal health record. It is not the complete legal health record.[facility]
--- OUTSIDE RECORDS SUMMARY | 2024-12-21 10:47 | XMS_ITS | Encounter Summary ---
Author Organization [facility] Address [address] [place] [address] Phone Care Team Providers Care Purchase Order Checker Name Role Phone Pcp, Not Required Primary Care Provider Unavaila ble Encounter Details Date Type Department Care Team (Late st Contact Info) Description 06/08/2024 Procedure Pass [facility] Emergency Imaging, Main [address] [place] [address] Social History Tobacco Use Types Packs/Day Years [...] 3:37 AM EDT Elisabet Griffith RN * [place] Suicide Severity Rating Scale (Screener/Recent Self-Report) Question [...] on filedocumented in this encounter Care Teams Purchase Order Checker Relationship Specialty Start Date End Date Pcp, Not Required [address] [place] [address] PCP - General 06/07/24 documented as of this encounter Additional Source Comments The information contained in this document represents components of the legal health record. It is not the complete legal health record.[facility]
--- OUTSIDE RECORDS SUMMARY | 2024-12-21 10:47 | XMS_ITS | Encounter Summary ---
Author Organization [facility] Address [address] [place] [address] Phone Care Team Providers Care Neonatal Nurse Name Role Phone Pcp, Not Required Primary Care Provider Unavaila ble Encounter Details Date Type Department Care Team ([facility] st Contact Info) Description 06/07/2024 Ophth Exam [facility] [address] [place] [address] Carmen Murillo, ROBERT, MPH [address] [place] [address] [email or web address] Social History Tobacco Use Types Packs/Day Years Used Date Smoking Tobacco: Never Assessed Education Answer Date Recorded Are you interested [...] Risk Indicated 06/08/2024 3:37 AM EDT Elisabet Griffith, LIZET * [facility] Suicide Severity Rating Scale (Screener/Recent Self-Report) Question Answer Date of Assessment Author 1. Wish to be (Past 1 Month) No 025 3:37 AM EDT Elisabet Griffith, LIZET 2. Non-Specific Active Suici nathan Thoughts (Past 1 Month) No 06/08/2024 3:37 AM EDT Venkat Griffith, LIZET 6. Suicidal Behavior (Lifetime) No 5 3:37 AM EDT Elisabet Griffith, RN documented as of this encounter Plan of Treatment Not on file documented as of this encounter Visit Diagnoses Not on filedocumented in this encounter Care Teams Neonatal Nurse Relationship Specialty Start Date End Date Pcp, Not Required [address] [place] [address] PCP - General 06/07/24 documented as of this encounter Additional Source Comments The information contained in this document represents components of the legal health record. It is not the complete legal health record.[facility]
--- OUTSIDE RECORDS SUMMARY | 2024-12-21 10:47 | XMS_ITS | Patient Health Record ---
Author Organization [facility] Address [address] [place] [address] Care Team Providers Care Medical Data Analyst Name Role Phone Giorgio Lozoya Unavailable [phone] David, Augusttony Unavailable [phone] Allergies Allergen (clinical drug ingredient) Drug/Non Drug Allergy documented on EMR Reaction Allergy Type Onset Date Status penicillin G benzathine hives Drug Allergy Active Reason For Referral No Information Medications Medication SIG (Take, Route, Frequency, Duration) Notes Start Date End Date Status TraMADol Hydrochloride 50 mg tablet 1 tab(s) orally every 6 hours; Duration: 7 days 11/25/2023 Active Trulicity Pen 0.75 mg/0.5 mL solution as directed subcutaneously once a week; Duration: 30 days Active rosuvastatin 40 mg tablet 1 tab(s) orall y once a day; Duration: 90 days Active ferrous gluconate 324 mg tablet 1 tab(s) orally once a day; Duration: 90 days Active Social History Social History Additional Details Category Social Info Options Details Social History 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: none Travel ouside [place]: no Alcohol: no Sexually active: yes Drug use: no Exercise: no Home smoke detector use: no Caffeine: no Marital Status: Children: sons: 2 Pets: dog 1 Checked Cholesterol levels yes Seat belt usage Yes Gun in house No Problems Problem Type SNOMED Code ICD Code Onset Dates Problem Status W/U Status Risk Notes Problem Bandemia (478775183) Bandemia (D72.825) Active confirmed Problem Iron deficiency (55099459) Iron deficiency (E61.1) Active confirmed Problem Obesity (514566287) Obesity (BMI 30-39.9) (E66.9) Active confirmed Problem Morbid obesity (157001376) Morbid obesity (E66.01) Active confirmed Problem 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 Problem Chronic fatigue syndrome (94832386) Chronic fatigue (R53.82) Active confirmed Problem Hyperglycemia due to type 2 diabetes mellitus (308134966128930) Type 2 diabetes mellitus with hyperglycemia, without long-term current use of insulin (E11.65) Active confirmed Problem Chronic osteomyelitis of ankle and/or foot (623308789) 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) Active confirmed Problem Acute osteomyelitis of ankle and/or foot (041908420) Acute osteomyelitis of left ankle (M86.172) Active confirmed Problem 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) Active confirmed Encounters Encounter Location Date Provider Diagnosis [facility] [address] [place] [address] [id number] 03/22/2024 Yasmine Hernandez [facility] [address] [place] [address] [id number] 04/07/2024 Yasmine Hernandez [facility] [address] [place] [address] [id number] 06/07/2024 Yasmine Hernandez [facility] [address] [place] [address] [id number] 06/09/2024 Yasmine Hernandez [facility] [address] [place] [address] [id number] 06/15/2024 Yasmine Hernandez [facility] [address] [place] [address] [id number] 12/06/2024 tony Hernandez [facility] [address] [place] [address] [id number] 12/12/2024 Giorgio Lozoya Plan Of Treatment Pending Test Test Name Order Date RAD: SHOULDER 2 VIEW MIN. 11/25/2023 *PAP CERVICAL CANCER SCREENING IMAGE-DMITRY DED PLUS HIGH RISK HPV IF ABNORMAL 08/05/2023 [facility] 03/17/2023 MRI: Shoulder,RIGHT WITH OUT Contrast Insurance Providers Payer Name Payer Address Payer Phone Subscriber Number Group Number Insured Name Patient Relationship to Insured Coverage Start Date Coverage End Date [facility] [employer] [address] [address] [place] [address] [id number] Marielena Mcbride Self - patient is the insured Medical (General) History Medical History History ICD Code type 2 DM Shoulder injury Surgical History Surgery Date(Month/Year) right foot ulcer debridement 11/2022 2 x C section Hospitalization History Reason Date(Month/Year) as above 11/2022
--- OUTSIDE RECORDS SUMMARY | 2024-12-21 10:47 | XMS_ITS | Encounter Summary ---
Author Organization [facility] Address [address] [place] [address] Phone Care Team Providers Care Dispensary Technician Name Role Phone Pcp, Not Required Primary Care Provider Unavaila ble Encounter Details Date Type Department Care Team (Late st Contact Info) Description 06/08/2024 Procedure Pass [facility] Imaging, Main [address] [place] [address] Social History Tobacco Use Types Packs/Day Years [...] 3:37 AM EDT Elisabet Griffith RN * [place] Suicide Severity Rating Scale (Screener/Recent Self-Report) Question [...] on filedocumented in this encounter Care Teams Dispensary Technician Relationship Specialty Start Date End Date Pcp, Not Required [address] [place] [address] PCP - General 06/07/24 documented as of this encounter Additional Source Comments The information contained in this document represents components of the legal health record. It is not the complete legal health record.[facility]
--- OUTSIDE RECORDS SUMMARY | 2024-12-21 10:47 | XMS_ITS | Encounter Summary ---
Author Organization [facility] Address [address] [place] [address] Phone Care Team Providers Care Assistant Editor Name Role Phone Pcp, Not Required Primary Care Provider Unavaila ble Encounter Details Date Type Department Care Team (Late st Contact Info) Description 06/08/2024 Procedure Pass [facility] [address] [place] [address] Social History Tobacco Use Types Packs/Day Years [...] 3:37 AM EDT Elisabet Griffith RN * [place] Suicide Severity Rating Scale (Screener/Recent Self-Report) Question Answer Date of Assessment Author 1. Wish to be (Past 1 Month) No 025 3:37 AM EDT Elisabet Griffith, LIZET 2. Non-Specific Active Suici nathan Thoughts (Past 1 Month) No 06/08/2024 3:37 AM EDT Venkat Griffith RN 6. Suicidal Behavior (Lifetime) No 3:37 AM EDT Elisabet Griffith, LIZET documented as of this encounter Plan of Treatment Not on file documented as of this encounter Visit Diagnoses Not on filedocumented in this encounter Care Teams Assistant Editor Relationship Specialty Start Date End Date Pcp, Not Required [address] [place] [address] PCP - General 06/07/24 documented as of this encounter Additional Source Comments The information contained in this document represents components of the legal health record. It is not the complete legal health record.[facility]
--- OUTSIDE RECORDS SUMMARY | 2024-12-21 10:47 | XMS_ITS | Encounter Summary ---
Author Organization [facility] Address [address] [place] [address] Phone Care Team Providers Care Metal Cans Supervisor Name Role Phone Pcp, Not Required Primary Care Provider Unavaila ble Encounter Details Date Type Department Care Team (Late st Contact Info) Description 06/10/2024 Procedure Pass [facility] [address] [facility] [address] [place] [address] Social History Tobacco Use Types Packs/Day Years [...] PM EDT documented as of this encounter Plan of Treatment Not on file documented as of this encounter Visit Diagnoses Not on filedocumented in this encounter Care Teams Metal Cans Supervisor Relationship Specialty Start Date End Date Pcp, Not Required [address] [place] [address] PCP - General 06/07/24 documented as of this encounter Additional Source Comments The information contained in this document represents components of the legal health record. It is not the complete legal health record.[facility]
[2024-12-22 13:00] LABS: White Blood Count 8.1 X10*3/uL (4.8-10.8)
[2024-12-22 13:01] LABS: Hematocrit 28.5 % (37.0-47.0); Hemoglobin 8.1 g/dl (12.0-16.0); Mean Corpuscular Volume 63.9 fL (80.0-98.0); Red Blood Count 4.46 X10*6/uL (4.20-5.50)
[2024-12-22 13:02] LABS: Lymphocytes Absolute Auto 2.6 X10*3/uL (1.2-4.9); Mean Corpuscular HGB Conc 28.4 g/dl (31.0-35.0); Mean Corpuscular Hemoglobin 18.2 pg (27.0-33.0); Platelet Count 368 X10*3/uL (160-400)
[2024-12-22 13:03] LABS: Erythrocyte Sedimentation Rate 30 MM/HR (0-20)
== END 2024-12-20 16:01 | disposition home or self-care (01) ==
LOC: HO.LNP 16:00
PROVIDERS: Visit Provider Student in an Organized Health Care Education/Training Program
DX: A41.9 Sepsis, unspecified organism (principal); M86.172 Other acute osteomyelitis, left ankle and foot; L03.115 Cellulitis of right lower limb; L03.116 Cellulitis of left lower limb
CPT/HCPCS: 85025; 85652; 86140